=== PATIENT | female | born 1970 | race Caucasian/White ===

== ENCOUNTER 2024-02-27 10:18 | Emergency (ER) | payer OTHER, SELFPAY ==
--- NOTE | 2024-02-27 10:21 | ED.EXTPRO ---
HPI - Extremity Problem General Chief complaint: Extremity Injury, Lower Stated complaint: lower extremity injury Time Seen by Provider: 02/27/24 10:21 Source: patient Mode of arrival: ambulatory Limitations: no limitations History of Present Illness HPI Narrative: Hedy is a 53-year-old female who presents to the clinic today with complaints bilateral lower extremity sunburn and blistering. She states she was at the pool on Friday and accidentally the fell asleep for a few hours. She comes in today due to concerns bilateral lower extremity blistering with a clear yellow fluid. She denies any fever, chills, pain, or itching. MD Complaint: extremity swelling and other (blistering) Related Data Home Medications Medication Instructions Recorded Confirmed diclofenac sodium 50 mg 50 mg PO DIRECTED 02/27/24 02/27/24 tablet,delayed release valsartan 40 mg tablet 40 mg DIRECTED 02/27/24 02/27/24 Allergies Allergy/AdvReac Type Severity Reaction Status Date / Time No Known Allergies Allergy Mild Verified 09/10/11 11:37 Review of Systems Review of Systems: Pertinent positives per HPI. Patient denies any fever, chills, headache, visual changes, dizziness, cough, runny nose, sore throat, shortness of breath, chest pain, palpitations, nausea, vomiting, diarrhea, constipation, abdominal pain, or any urinary issues. PMFSH Comments At the time of my signature, I reviewed and agree with the nursing past medical, surgical, social, and family history. There is no relevant family history pertinent to the patient complaint. Exam Narrative: General: Well-developed, well nourished, in no apparent distress Head: Normocephalic, atraumatic. Musculoskeletal: No deformity, non-tender to palpation, grossly normal range of motion, muscle strength strong and equal, non-pitting bilateral lower extremity edema, no cyanosis, normal gait and station Integumentary: Anterior bilateral lower extremities erythematous and swollen, anterior distal bilateral lower leg blistering with a yellow serous drainage Course Course Emergency Course: Portions of this record may have been created with voice recognition software. Level of Care: Express Care Visit Vital Signs Vital signs: Vital Signs Temperature 37.1 C 02/27/24 10:36 Pulse Rate 73 02/27/24 10:36 Respiratory Rate 20 02/27/24 10:36 Blood Pressure 119/64 02/27/24 10:36 Pulse Oximetry 100 02/27/24 10:36 Oxygen Delivery Room Air 02/27/24 10:36 Temperature 37.1 C 02/27/24 10:39 Pulse Rate 73 02/27/24 10:39 Respiratory Rate 20 02/27/24 10:39 Blood Pressure 119/64 02/27/24 10:39 Pulse Oximetry 100 02/27/24 10:39 Oxygen Delivery Room Air 02/27/24 10:39 Vital signs reviewed MDM - Extremity (Nontraumatic) MDM Narrative Medical decision making narrative: At the time of visit patient is resting comfortably on the exam table. Patient appears to be nontoxic. Plan: I suspect patient has second-degree burn to bilateral lower legs. No sign of infection in the clinic today. Tetanus shot given in the clinic today. Wound care instructions given. Reviewed signs and symptoms of infection to monitor for. Supportive measures were discussed with the patient and they voiced understanding discharge instructions and agrees to treatment plan. Return precautions reviewed Differential Diagnosis Differential diagnosis: Likely cellulitis, lower extremity edema and other (Second degree burn) Discharge Plan Discharge Clinical Impression: Second degree burn of leg Qualifiers: Encounter type: initial encounter Laterality: unspecified laterality Qualified Code(s): T24.209A - Burn of second degree of unspecified site of unspecified lower limb, except ankle and foot, initial encounter Patient Disposition: Home, Self-Care Condition: Stable Instructions: Antibiotic Form, Second-Degree Burn (ED) Additional Instructions: Increase fluids and stay w
[2024-02-27 10:36] VITALS: BP 119/64; PULSE 73; RESP 20; TEMP 37.1; O2SAT 100
[2024-02-27 10:39] VITALS: BP 119/64; PULSE 73; RESP 20; TEMP 37.1; O2SAT 100
[2024-02-27] MEDS: TETANUS,DIPHTHERIA,AC PERTUSSIS ADULT (0.5 ML) BOOSTRIX IM (10:57)
== END 2024-02-27 11:15 | disposition home or self-care (01) ==
PROVIDERS: Emergency Provider Nurse Practitioner Family; PCP Physician Assistant
DX: L55.1 Sunburn of second degree (principal); Z23 Encounter for immunization; I10 Essential (primary) hypertension; M19.90 Unspecified osteoarthritis, unspecified site
CPT/HCPCS: 90471; 90715; 99212; G0463